=== PATIENT | female | born 1995 | race Caucasian/White ===

== ENCOUNTER 2018-06-05 13:26 | Inpatient (IN) | payer OTHER ==
[~2018-06-05] VITALS: Ht 160 cm; Wt 63.0 kg
[2018-06-05] VITALS (12 sets, daily range): BP systolic 112–129; BP diastolic 67–95
--- NOTE | 2018-06-05 13:38 | ER Report ---
History and Physical Time Seen By MD: 13:38 HPI/ROS CHIEF COMPLAINT: Intentional overdose HISTORY OF PRESENT ILLNESS: This is a 22-year-old female presents to the emergency department with a friend for an intentional overdose. Patient states that about 12 hours prior to arrival, she was depressed, has been depressed for quite some time, decided that she wanted to kill her self, she did take 2. DayQuil, about 15 ibuprofen and a handful of serous that. She denies taking any other medications, no alcohol. No recent fevers or chills. No chest pain. She does have nausea, no vomiting. She states that she's had depression for a number of years, has never been formally diagnosed, she also states that she cuts periodically to relieve tension. REVIEW OF SYSTEMS: Constitutional: No fever, no chills. Eyes: No discharge. ENT: No sore throat. Cardiovascular: No chest pain, no palpitations. Respiratory: No cough, no shortness of breath. Gastrointestinal: As above. Genitourinary: No hematuria. Musculoskeletal: No back pain. Skin: No rashes. Neurological: No headache. Psychological: As above. Allergies: Coded Allergies: No Known Drug Allergies (Unverified , 06/05/18) Home Meds No Active Prescriptions or Reported Meds Past Medical/Surgical History The patient has a past medical and surgical history of headaches, undiagnosed depression, cutting. Reviewed Nurses Notes: Yes Constitutional Vital Sign - Last 24 Hours 06/05/18 06/05/18 06/05/18 06/05/18 13:26 13:36 13:40 13:41 Temp 97.1 Pulse ??? 101 102 Resp 18 B/P (MAP) 132/81 132/81 (98) Pulse Ox 97 96 O2 Delivery Room Air 06/05/18 06/05/18 06/05/18 06/05/18 13:56 14:11 14:26 14:38 Pulse 85 81 79 Resp 8 B/P (MAP) 119/83 (95) Pulse Ox 98 97 95 06/05/18 06/05/18 06/05/18 06/05/18 14:41 14:56 15:00 15:11 Pulse 133 91 83 Resp 12 10 9 B/P (MAP) 129/88 (102) Pulse Ox 94 94 94 06/05/18 06/05/18 06/05/18 15:16 15:30 15:31 Pulse 86 74 Resp 15 8 B/P (MAP) ???/??? (1665) Pulse Ox 94 97 Intake and Output 06/05/18 06/05/18 06/06/18 15:00 23:00 07:00 Intake Total 1000 ml Balance 1000 ml Physical Exam General Appearance: The patient is alert, has no immediate need for airway protection and no signs of toxicity, tearful. Eyes: Pupils equal and round no pallor or injection. ENT, Mouth: Mucous membranes are moist. Respiratory: There are no retractions, lungs are clear to auscultation. Cardiovascular: Regular rate and rhythm, no murmurs, clicks or rubs. Gastrointestinal: Abdomen is soft and non tender, no masses, bowel sounds normal. Neurological: Alert and oriented 4. Moving all extremities. Following all com mands. No focal neuro deficits. Skin: Warm and dry, no rashes. Musculoskeletal: Neck is supple non tender. Extremities are nontender, nonswollen and have full range of motion. DIFFERENTIAL DIAGNOSIS: After history and physical exam differential diagnosis was considered for suicide attempt. Medical Decision Making Data Points Result Diagram: 06/06/18 0436 06/06/18 0436 Laboratory Hematology Test 06/05/18 13:38 06/05/18 14:33 Urine Color Yellow Urine Clarity Slightly-cloudy Urine pH 5.0 pH (4.8-9.5) Urine Specific Hitchins 1.029 Urine Protein 30 mg/dL (NEGATIVE) Urine Glucose (UA) Negative mg/dL (NEGATIVE) Urine Ketones 80 mg/dL (NEGATIVE) Urine Blood Negative (NEGATIVE) Urine Nitrite Negative (NEGATIVE) Urine Bilirubin Negative (NEGATIVE) Urine Urobilinogen Negative mg/dL (0.2-1.9) Urine Leukocyte Esterase Negative (NEGATIVE) Urine RBC None /HPF (0-2/HPF) Urine WBC 3 /HPF (0-5/HPF) Urine Squamous Epithelial Cells Many /LPF (</=FEW) Urine Amorphous Crystals Few /HPF Urine Bacteria Negative /HPF (NONE-FEW) Urine Hyaline Casts Few /LPF (NONE-FEW) Urine Mucus Few /HPF (NONE-FEW) Urine HCG, Qualitative Negative (NEGATIVE) Urine Opiates Screen Negative Urine Barbiturates Screen Positive Ur Tricyclic Antidepressants Screen Negative Urine Phencyclidine Screen Negative Urine Amphetamines Screen Negative Urine Benzodiazepines Screen Negative Urine Cocaine Screen Negative Urine Cannabinoids Screen Positive Magnesium Level 1.8 mg/dl (1.7-2.2) B-Type Natriuretic Peptide < 5 pg/ml (0-100) Thyroid Stimulating Hormone (TSH) 0.31 uIU/ml (0.46-4.68) Serum Alcohol < 10 mg/dl Chemistry Test 06/05/18 13:38 06/05/18 14:33 Urine Color Yellow Urine Clarity Slightly-cloudy Urine pH 5.0 pH (4.8-9.5) Urine Specific Hitchins 1.029 Urine Protein 30 mg/dL (NEGATIVE) Urine Glucose (UA) Negative mg/dL (NEGATIVE) Urine Ketones 80 mg/dL (NEGATIVE) Urine Blood Negative (NEGATIVE) Urine Nitrite Negative (NEGATIVE) Urine Bilirubin Negative (NEGATIVE) Urine Urobilinogen Negative mg/dL (0.2-1.9) Urine Leukocyte Esterase Negative (NEGATIVE) Urine RBC None /HPF (0-2/HPF) Urine WBC 3 /HPF (0-5/HPF) Urine Squamous Epithelial Cells Many /LPF (</=FEW) Urine Amorphous Crystals Few /HPF Urine Bacteria Negative /HPF (NONE-FEW) Urine Hyaline Casts Few /LPF (NONE-FEW) Urine Mucus Few /HPF (NONE-FEW) Urine HCG, Qualitative Negative (NEGATIVE) Urine Opiates Screen Negative Urine Barbiturates Screen Positive Ur Tricyclic Antidepressants Screen Negative Urine Phencyclidine Screen Negative Urine Amphetamines Screen Negative Urine Benzodiazepines Screen Negative Urine Cocaine Screen Negative Urine Cannabinoids Screen Positive Magnesium Level 1.8 mg/dl (1.7-2.2) B-Type Natriuretic Peptide < 5 pg/ml (0-100) Thyroid Stimulating Hormone (TSH) 0.31 uIU/ml (0.46-4.68) Serum Alcohol < 10 mg/dl Toxicology Test 06/05/18 13:38 06/05/18 14:33 Urine Opiates Screen Negative Urine Barbiturates Screen Positive Ur Tricyclic Antidepressants Screen Negative Urine Phencyclidine Screen Negative Urine Amphetamines Screen Negative Urine Benzodiazepines Screen Negative Urine Cocaine Screen Negative Urine Cannabinoids Screen Positive Serum Alcohol < 10 mg/dl Urinalysis Test 06/05/18 13:38 Urine Color Yellow Urine Clarity Slightly-cloudy Urine pH 5.0 pH (4.8-9.5) Urine Specific Hitchins 1.029 Urine Protein 30 mg/dL (NEGATIVE) Urine Glucose (UA) Negative mg/dL (NEGATIVE) Urine Ketones 80 mg/dL (NEGATIVE) Urine Blood Negative (NEGATIVE) Urine Nitrite Negative (NEGATIVE) Urine Bilirubin Negative (NEGATIVE) Urine Urobilinogen Negative mg/dL (0.2-1.9) Urine Leukocyte Esterase Negative (NEGATIVE) Urine RBC None /HPF (0-2/HPF) Urine WBC 3 /HPF (0-5/HPF) Urine Squamous Epithelial Cells Many /LPF (</=FEW) Urine Amorphous Crystals Few /HPF Urine Bacteria Negative /HPF (NONE-FEW) Urine Hyaline Casts Few /LPF (NONE-FEW) Urine Mucus Few /HPF (NONE-FEW) Urine HCG, Qualitative Negative (NEGATIVE) EKG/Imaging EKG Interpretation 12 lead EKG: Time of EKG 1427. Rhythm: Normal sinus rhythm, ventricular rate 85 bpm. Norton: normal QRS: normal ST segments: No ST depression or elevation identified. ED Course/Re-evaluation Clinical Indication for ER IV: Hydration, IV Access ED Course Patient was admitted to room. History and physical were pain. Differential diagnoses were considered. An IV was started. A CBC, CMP, psych panel and 1 L normal saline bolus was given. 4 mg IV Zofran. CBC showing hemoglobin and hematocrit 17.2 and 49.3, mild left shift, CO2 21, creatinine 1.10, negative BNP positive for habitus and barbiturates, contaminated UA, initially salicylates unremarkable, acetaminophen level of 40, one hour later acetaminophen level 35.Patient was remorseful, she did sign into the care of health and ICU on a voluntary basis. We did contact poison control, was recommended that we monitor with serial labs, specifically the Tylenol and aspirin levels. EKG showing no rmal sinus rhythm. The patient did well while in the emergency department, she did sign into behavioral health and the ICU voluntarily for suicide attempt. Patient was also evaluated by a psychotherapist prior to admission. I did speak with Dr. Nick Brown as noted below, patient was admitted to ICU. A patient was also given activated charcoal while in the emergency department. 06/05/2018 3:22:51 pm I did speak with Dr. Astrid Brown, the hospitalist furnishings conservator, he will come and evaluate the patient for possible admission to the ICU. The patient was also evaluated by the behavioral health tech, she did sign in voluntarily. 06/05/2018 4:14:[address] Hernandez was able to evaluate the patient, she will be admitted to the ICU for observation and likely transfer to the behavioral health unit. Decision to Disposition Date: Jun 05, 2018 Decision to Disposition Time: 16:14 Depart Departure Latest Vital Signs Vital Signs Date Time Temp Pulse Resp B/P (MAP) Pulse Ox O2 Delivery O2 Flow Rate FiO2 06/05/18 15:31 74 8 97 06/05/18 15:30 ???/??? (1665) 06/05/18 13:36 97.1 Room Air Impression: Primary Impression: Suicide attempt Condition: Improved Disposition: Admitted from ER New Scripts No Active Prescriptions or Reported Meds TRINY THOMAS PARTS IDENTIFICATION TECHNICIAN-BC Jun 05, 2018 13:38
[2018-06-05] MEDS ORDERED: NS(*) 0.9% 1000 ML BAG 1,000 ML IV ONE (13:58)
[2018-06-05] MEDS ORDERED: ONDANSETRON 4 MG/2 ML VIAL IVP ONE (14:00)
[2018-06-05] MEDS ORDERED: ACTIVATED CHAR/SORB 25GM/120ML PO ONE (14:20)
[2018-06-05 14:38] LABS: PLATELET COUNT, AUTOMATED 308 K/uL (150-450)
--- NOTE | 2018-06-05 15:51 | EKG ---
FACILITY: [facility] PATIENT NAME: AYAKA WALKER : [id number] MR: [id number] V: [id number] EXAM DATE: ORDERING PHYSICIAN: TRINY THOMAS TECHNOLOGIST: TANYA Owens Reason : Blood Pressure : / mmHG Vent. Rate : 085 BPM Atrial Rate : 085 BPM P-R Int : 122 ms QRS Dur : 074 ms QT Int : 362 ms P-R-T Axes : 063 079 042 degrees QTc Int : 430 ms Normal sinus rhythm with sinus arrhythmia Normal ECG No previous ECGs available Confirmed by OG WHALEN ([id number]) on 06/05/2018 5:15:07 PM Referred By: Confirmed By:OG WHALEN
[2018-06-05] MEDS ORDERED: ONDANSETRON 4 MG/2 ML VIAL ONE (17:02)
[2018-06-05] MEDS ORDERED: PROMETHAZINE 25 MG/ML 1 ML AMP IVP PRN (17:10)
--- NOTE | 2018-06-05 17:42 | History & Physical ---
History of Present Illness History of Present Illness 22yo female with h/o depression and migraines who was brought to the ER after an ingestion of DayQuil, Advil, and Fioricet. She reports for the last couple of weeks she has been feeling more down and more stressed. There was no acute stressor today. At about 11am she took 2 capfuls of DayQuil, 10-15 of 200mg ibuprofen and 10 Fioricet. She told a friend about it and they brought her to the ER. She reports that when she got to the ER she felt nauseated, dizzy and her fingertips felt numb. She is feeling a bit better now. She denies suicidal ideation currently. She has never attempted suicide before, but has a h/o cutting herself. She denies any other ingestions. She rarely drinks alcohol, doesn't smoke cigarettes and denies any illicit drug use. In the ER she received Charcoal, Zofran and a liter of NS. History Problems: (1) Depression (2) Migraine Allergies: Coded Allergies: No Known Drug Allergies (Unverified , 06/05/18) Other Social/Family Hx See HPI. Student at [employer]. She has lived in [place] for 7 years. She lived in [place] in the [place], prior. Hx Alcohol Use: Yes (ONCE A MONTH ) Alcohol Withdrawl Symptoms: Hallucinations Review of Systems All Systems Reviewed/Normal: Yes, Except as Noted Exam Vital Signs Vital Signs Date Time Temp Pulse Resp B/P (MAP) Pulse Ox O2 Delivery O2 Flow Rate FiO2 06/05/18 15:11 83 9 94 06/05/18 15:00 129/88 (102) 06/05/18 13:36 97.1 Room Air General Appearance: Alert, Awake, No Acute Distress (Tearful) Neuro: No Gross deficits Eyes: PERRLA ENT: Moist Mucous Membranes Cardiovascular: Regular Rate and Rhythm Respiratory: Clear to Auscultation GI: Abd Soft and Non-Tender Extremities: No Edema Integumentary: No Jaundice, No Cyanosis Medical Decision Making Data Points Result Diagram: 06/05/18 1433 06/05/18 1433 Item Value Date Time Hemoglobin 17.2 g/dL H 06/05/18 1433 Neutrophils (%) (Auto) 75.8 % H 06/05/18 1433 B-Type Natriuretic Peptide < 5 pg/ml 06/05/18 1433 Total Bilirubin 1.3 mg/dl 06/05/18 1433 Aspartate Amino Transf (AST/SGOT) 27 U/L 06/05/18 1433 Alanine Aminotransferase (ALT/SGPT) 26 U/L 06/05/18 1433 Alkaline Phosphatase 83 U/L 06/05/18 1433 Urine Ketones 80 mg/dL H 06/05/18 1338 Urine Squamous Epithelial Cells Many /LPF H 06/05/18 1338 Urine Amorphous Crystals Few /HPF 06/05/18 1338 Urine Bacteria Negative /HPF 06/05/18 1338 Urine WBC 3 /HPF 06/05/18 1338 Urine RBC None /HPF 06/05/18 1338 Urine HCG, Qualitative Negative 06/05/18 1338 Serum Alcohol < 10 mg/dl 06/05/18 1433 Acetaminophen Level 40 ug/ml 06/05/18 1433 Acetaminophen Level 35 ug/ml 06/05/18 1529 Salicylates Level < 10 mg/L 06/05/18 1529 Salicylates Level < 10 mg/L 06/05/18 1433 Urine Barbiturates Screen Positive 06/05/18 1338 Urine Cannabinoids Screen Positive 06/05/18 1338 EKG / Imaging EKG Interpretation Vent. Rate : 085 BPM Atrial Rate : 085 BPM P-R Int : 122 ms QRS Dur : 074 ms QT Int : 362 ms P-R-T Axes : 063 079 042 degrees QTc Int : 430 ms Normal sinus rhythm with sinus arrhythmia Normal ECG No previous ECGs available Confirmed by OG WHALEN ([id number]) on 06/05/2018 5:15:07 PM Assessment and Plan Problems: (1) Overdose Status: Acute Assessment & Plan: She presented a couple about 2 hours after ingestion 2 capfuls of DayQuil, 10-15 of 200mg ibuprofen and 10 Fioricet. She thinks she has a h/o depression and has been more depressed and stressed over the last 2 weeks. There was no inciting event today. She received Charcoal in the ER. She is feeling less nauseated and the distal fingertip numbness is improving. B P/P are stable. Her mental status appears to be near baseline. Will recheck ECG, APAP and salicylates this evening. She will be monitored in the ICU. Venous Thromboembolism Antithrombotics Is Pt On Any Antithrombotics?: No Exam Sepsis Risk: No Definite Risk OG WHALEN MD Jun 05, 2018 17:42
--- NOTE | 2018-06-05 20:40 | EKG ---
FACILITY: [facility] PATIENT NAME: AYAKA WALKER : [id number] MR: [id number] V: [id number] EXAM DATE: ORDERING PHYSICIAN: OG WHALEN TECHNOLOGIST: JOSEPH Test Reason : CHEM INJESTION Blood Pressure : / mmHG Vent. Rate : 088 BPM Atrial Rate : 088 BPM P-R Int : 124 ms QRS Dur : 082 ms QT Int : 342 ms P-R-T Axes : 084 081 055 degrees QTc Int : 413 ms Normal sinus rhythm with sinus arrhythmia Nonspecific T wave abnormality Abnormal ECG When compared with ECG of 05-JUN-2018 14:27, No significant change was found Confirmed by OG WHALEN ([id number]) on 06/05/2018 9:24:53 PM Referred By: Confirmed By:OG WHALEN
[2018-06-06] VITALS (24 sets, daily range): BP systolic 92–138; BP diastolic 48–93; Ht 160 cm; Wt 63.0 kg
[2018-06-06 04:59] LABS: PLATELET COUNT, AUTOMATED 267 K/uL (150-450)
--- NOTE | 2018-06-06 10:05 | Hospitalist Depart ---
Discharge Summary Reason for Hosp/Final Diag: (1) Overdose Status: Acute Hospital Course & Plan: She was observed in the ICU overnight after an attempted overdose with 2 Dayquil and 15 ibuprofen. She had no adverse events. She will transfer to [facility] for ongoing care. Departure Latest Vital Signs Vital Signs 06/06/18 09:30 Temp 98.0 Pulse 66 Resp 13 B/P (MAP) 114/66 (82) Pulse Ox 92 O2 Delivery Room Air Weight (Pounds): 139 Result Diagram: 06/06/186 06/06/18 043 Condition: Improved Discharge: [facility] Discharge Instructions Diet: Regular Activity: As Tolerated Venous Thromboembolism Antithrombotics Is Pt On Any Antithrombotics?: No DAVID LINDQUIST DO Jun 06, 2018 10:05
[2018-06-07] MEDS ORDERED: INFLUENZA VIRUS VAC 0.5ML SYR IM ONLY ONE (09:00)
== END 2018-06-06 13:45 | DRG 918 ==
LOC: ER 13:46 → ICU 15:41
PROVIDERS: ADMIT Internal Medicine; ATTEND Internal Medicine
DX: T39.312A Poisoning by propionic acid derivatives, intentional self-harm, initial encounter (principal); T39.1X2A Poisoning by 4-Aminophenol derivatives, intentional self-harm, initial encounter; T50.992A Poisoning by other drugs, medicaments and biological substances, intentional self-harm, initial encounter; T14.91XA Suicide attempt, initial encounter; F32.9 Major depressive disorder, single episode, unspecified; Z91.5 Personal history of self-harm
CPT/HCPCS: 36415; 80305; 80320; 80329; 81001; 81025; 82040; 82247; 82310; 82374; 82435; 82565; 82947; 83735; 83880; 84075; 84132; 84155; 84295; 84443; 84450; 84460; 84520; 85025; 93005; 96374; 99284; J2405; J7030

== ENCOUNTER 2018-06-06 13:45 | Inpatient (IN) | payer OTHER ==
[~2018-06-06] VITALS: Ht 157.5 cm; Wt 61.7 kg
[2018-06-06 08:35] VITALS: Ht 157.5 cm; Wt 61.7 kg
[2018-06-06] MEDS ORDERED: ACETAMINOPHEN 325 MG TAB PO PRN (14:35)
[2018-06-06] MEDS ORDERED: MAG HYD/AL HYD/SIMETH 30ML UDC PO PRN (14:35)
[2018-06-06 16:51] VITALS: BP 107/71
[2018-06-07] MEDS ORDERED: hydrOXYzine PAMOATE 25 MG CAP PO PRN (00:10)
[2018-06-07 05:31] VITALS: BP 118/85
[2018-06-07] MEDS: MULTIVITAMINS TAB PO SCH (08:14)
[2018-06-07 09:07] VITALS: BP 107/68
[2018-06-07] MEDS: FLUoxetine HCL 20 MG CAP PO SCH (10:39)
--- NOTE | 2018-06-07 15:25 | HISTORY AND PHYSICAL ---
DATE OF ADMISSION: June 06, 2018 ATTENDING PHYSICIAN Lilly Colon MD The patient was interviewed on 06/07/18 for this history and physical. CHIEF COMPLAINT "I tried to commit suicide two days ago." HISTORY OF PRESENT ILLNESS This is the first ever psychiatric admission for this 22-year-old female who has a history of depression and who took an overdose in a suicide attempt two days ago. The patient says she has been depressed for seven or eight years and has received no treatment for this. Over the past two weeks, her depression has been more intense with the onset of suicidal ideation. On the day of admission, she took medications with her and drove her car down the street from her parents' house and then took an overdose in her car including drinking DayQuil, taking some Advil and some Fioricet. About 1-1/2 hours after she took the overdose, she then called her friend, Jennifer, who came and got her and drove her to the emergency room. The patient did sign in voluntarily to the hospital and to [facility], but she was first admitted to the ICU where she was monitored overnight. Please see the discharge summary from the Medical Service. She was stable for transfer to [facility] on 06/06/18. 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 When asked about mood swings, she describes sometimes feeling normal, and then her mood dipping down into depression, but there are never any episodes of euphoria nor daniel. PAST PSYCHIATRIC HISTORY The patient has never been in any kind of psychiatric treatment and has never had a suicide attempt before. FAMILY HISTORY Negative. PAST MEDICAL HISTORY She is in good health. MEDICATIONS None. ALLERGIES None. SOCIAL HISTORY The patient was born in [place] to parents who are still . She has one full sister, two half sisters, and one half brother. The family moved around a lot, including [place], [place], [place], [place], and finally [place]. She is a high school graduate and is now taking health science courses at [employer]. 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 She lives at home with her parents, with whom she describes a good relationship. LEGAL HISTORY Negative. VICTIM ISSUES She has no history of physical or sexual abuse. SUBSTANCE ABUSE HISTORY She drinks about two glasses of wine per month and other than that uses no other drugs. PHYSICAL EXAMINATION Please see the emergency room physician's report as well as her ICU chart. VITAL SIGNS: Temperature 98.8, pulse 78, respiratory rate 15, blood pressure 107/71, pulse ox is 95% on room air. LABORATORY STUDIES These were done the morning of admission while the patient was still in ICU. At that time, her CBC was within normal limits except for hemoglobin 16.4 and hematocrit 47.8 which are both elevated. Her chemistry panel on 06/06/18 was within normal limits. Her TSH is low at 0.31. Her tox screen on admission to the Emergency Room the day before was positive for barbiturates and positive for cannabinoids. At that time, her acetaminophen level was 13. It was followed serially, and she never did require any Mucomyst. Serum alcohol was nil. Urinalysis on admission showed high ketones at 80 and was otherwise within normal limits. Her urine hCG was negative. MENTAL STATUS EXAMINATION The patient was well groomed and cooperative, dressed in hospital scrubs. Her speech was low in volume and somewhat delayed in her responses. Her mood and affect were significantly depressed with several episodes of tearfulness. Thought process was logical and goal directed. Thought content was negative for any current suicidal ideation, although she does still feel passive wishes. She denies homicidal ideation. There are no auditory or visual hallucinations. There are no delusions. She is alert and fully oriented to person, place, time, and situation. Memory is intact for immediate, recent, and remote recall. Intelligence is average based on interview. Insight and judgment are fair. IMPRESSION 1. Major depressive disorder, recurrent, severe. 2. Status post suicide attempt by overdose. PLAN The patient is admitted to [facility] and is being maintained on suicide precautions. She will attend individual and group therapies. We have discussed medications for depression, and she has agreed to a trial of Prozac 20 mg each day. In addition, we will add trazodone 50 mg at bedtime to help with sleep. Her mother will join us for a team meeting tomorrow, and we will arrange outpatient therapy and medication management for her for after she goes home. Her estimated length of stay will be three to five days. [facility]
[2018-06-07] MEDS: traZODone HCL 50 MG TAB PO SCH (20:46)
[2018-06-07 21:02] VITALS: BP 112/72
[2018-06-08 06:29] VITALS: BP 106/72
[2018-06-08 08:04] VITALS: BP 109/66
[2018-06-08] MEDS: FLUoxetine HCL 20 MG CAP PO SCH (08:19)
[2018-06-08] MEDS: MULTIVITAMINS TAB PO SCH (08:19)
--- NOTE | 2018-06-08 14:53 | BHS Progress Note ---
S - Subjective Progress Notes Subjective Pt seen in treatment team-- her mother was unable to attend (but parents did visit last night). Pt says she is feeling better, and denies SI. She is tolerating medications well, denies SE's, slept better last night. We discussed her drug screen positive for cannabis, and will do more psychoeducation today regarding link between cannabis abuse, depression, suicidality. She would like to be discharged today but I told her we need at least one more day to monitor her safety-- given the serious nature of overdose, and given that she has never been on antidepressant before, want to make sure prozac and trazodone are well tolerated and not inducing suicidal thinking. Today she will work on distress tolerance, mindfulness, and then start wellness and recovery plan for tentative dc tomorrow. Suicidal Ideation: None Homicidal Ideation: None S - Objective Physical Exam Vital Signs Vital Signs 06/08/18 08:04 Temp 98.8 Pulse 91 Resp 16 B/P (MAP) 109/66 (80) Pulse Ox 94 O2 Delivery Room Air Muscle Strength and Tone: WNL Gait and Station: Steady BHS Medications Reviewed: Side Effects, Benefits of Medication, Risks Allergies Reviewed: Yes Mental Status Exam General Appearance: Casual, Well Groomed, Cooperative, Good Interaction, Tearful, Psychomotor Retardation Speech: Clear, Spontaneous, Delayed Mood: Dysthmic/Depressed Affect: Calm, Sad, Tearful Thought Process: Organized, Logical, Goal Directed Thought Content: No Suicidal Ideation, No Homicidal Ideation, No Delusions, No Auditory Halllucinations, No Visual Hallucinations, No Thought Broadcasting, No Ideas of Reference, No Obsessions, No Compulsions, No Other Sensorium: Clear Cognition: Alert & Oriented-Person, Alert & Oriented-Place, Alert & Oriented- Time, [id number]-[id number] Memory: Immediate, Recent, Remote Intelligence: Average Insight Judgment: Fair [facility] Assessment and Plan [id number] Encounter Date: Jun 08, 2018 [id number] Encounter Time: 10:30 [facility] Plan: Necessary Precautions, Individual/Group Therapy, Admin/Titrate Meds, Educate Patient Tobacco Medications: Not Appropriate Condition Multpiple Antipsychotics Used: No Problems: (1) Depression, major, single episode, severe (2) Suicide attempt Status: Acute ANAID REYES MD Jun 08, 2018 14:53
[2018-06-08] MEDS: traZODone HCL 50 MG TAB PO SCH (20:25)
[2018-06-08 20:56] VITALS: BP 100/72
[2018-06-09 06:12] VITALS: BP 104/76
[2018-06-09] MEDS: FLUoxetine HCL 20 MG CAP PO SCH (08:23)
[2018-06-09] MEDS: MULTIVITAMINS TAB PO SCH (08:23)
[2018-06-09] MEDS ORDERED: TRAZ50TA34 PO (10:37)
[2018-06-09] MEDS ORDERED: FLUO-202 PO (10:38)
[2018-06-09] MEDS ORDERED: MINO100C27 PO (10:39)
[2018-06-09] MEDS ORDERED: MINOCYCLINE HCL 100 MG CAP PO SCH (11:00)
--- NOTE | 2018-06-09 14:16 | BHS Discharge Summary ---
[facility] Discharge Summary Vpaz-bb-Cezp Encounter Date: Jun 09, 2018 Aiot-tp-Dkhl Encounter Time: 10:30 Reason-Hosp/Final Diag (DSM-V): (1) Depression, major, single episode, severe Hospital Course & Plan: CHIEF COMPLAINT "I tried to commit suicide two days ago." HISTORY OF PRESENT ILLNESS This is the first ever psychiatric admission for this 22-year-old female who has a history of depression and who took an overdose in a suicide attempt two days ago. The patient says she has been depressed for seven or eight years and has received no treatment for this. Over the past two weeks, her depression has been more intense with the onset of suicidal ideation. On the day of admission, she took medications with her and drove her car down the street from her parents' house and then took an overdose in her car including drinking DayQuil, taking some Advil and some Fioricet. About 1-1/2 hours after she took the overdose, she then called her friend, Jennifer, who came and got her and drove her to the emergency room. The patient did sign in voluntarily to the hospital and to [facility], but she was first admitted to the ICU where she was monitored overnight. Please see the discharge summary from the Medical Service. She was stable for transfer to Behavioral Health on 06/06/18. 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 When asked about mood swings, she describes sometimes feeling normal, and then her mood dipping down into depression, but there are never any episodes of euphoria nor daniel. PAST PSYCHIATRIC HISTORY The patient has never been in any kind of psychiatric treatment and has never had a suicide attempt before. HOSPITAL COURSE Pt was admitted to [facility] and maintained on suicide precautions. She was cooperative and an active participant in her treatment, attending all groups and [place] activities. She still had vague suicidal ideation the first day, but this resolved for the rest of hospital stay. She participated in psychoeducation about depression, also about the negative effects of cannabis and alcohol. We held a family meeting by phone with pt's mother who was supportive, and who verified that there are no firearms in the home-- we recommended that medications in the home be locked up at least for the first month while pt begins to benefit from meds and gets established in therapy. We discussed pro's and cons of medication, and she chose to follow our recommendati on and start prozac 20 mg q am and trazodone 50 mg q hs. These were well tolerated. We also added minocycline 100 mg q am for acne. We discussed with her her mildly abnormal thyroid function tests (see labs below) and she will follow up with her LMD. She will also follow up with outpatient therapy at [facility] where she will have weekly therapy as well as medication management. (2) Suicide attempt Status: Acute (3) Abnormal thyroid function test Physical Exam Latest Vital Signs Vital Signs 06/09/18 06:12 Temp 98.3 Pulse 61 Resp 15 B/P (MAP) 104/76 (85) Pulse Ox 96 O2 Delivery Room Air Mental Status Exam General Appearance: Casual, Well Groomed, Good Eye Contact, Cooperative, Polite, Good Interaction Speech: Clear, Spontaneous, Normal Rate, Normal Rhythm, Normal Volume, Normal Tone Mood: Euthymic Affect: Full and Appropriate, Calm Thought Process: Organized, Logical, Goal Directed Thought Content: No Suicidal Ideation, No Homicidal Ideation, No Delusions, No Auditory Halllucinations, No Visual Hallucinations, No Thought Broadcasting, No Ideas of Reference, No Obsessions, No Compulsions, No Other Sensorium: Clear Cognition: Alert & Oriented-Person, Alert & Oriented-Place, Alert & Oriented- Time, Deyjh-Thrswnpt-Gdsnzvraf Memory: Immediate, Recent, Remote Intelligence: Average Insight Judgment: Good Departure Item Value Date Time White Blood Count 6.2 k/uL 06/06/18 0436 Red Blood Count 4.99 M/uL 06/06/186 Hemoglobin 16.4 g/dL H 06/06/18435 Hematocrit 47.8 % H 06/06/18435 Mean Corpuscular Volume 95.8 fL 06/06/18435 Mean Corpuscular Hemoglobin 33.0 pg 06/06/18435 Mean Corpuscular Hemoglobin Concent 34.4 g/dL 06/06/18435 Red Cell Distribution Width 12.2 % 06/06/18435 Platelet Count 267 K/uL 06/06/18435 Mean Platelet Volume 8.0 fL 06/06/18435 Neutrophils (%) (Auto) 56.1 % 06/06/18 043 Lymphocytes (%) (Auto) 27.8 % 06/06/18435 Monocytes (%) (Auto) 14.5 % H 06/06/18 043 Eosinophils (%) (Auto) 0.9 % 06/06/18 043 Basophils (%) (Auto) 0.7 % 06/06/18435 Nucleated RBC Relative Count (auto) 0.1 /100WBC 06/06/18435 Neutrophils # (Auto) 3.5 K/uL 06/06/18435 Lymphocytes # (Auto) 1.7 K/uL 06/06/18435 Monocytes # (Auto) 0.9 K/uL 06/06/18435 Eosinophils # (Auto) 0.1 K/uL 06/06/18435 Basophils # (Auto) 0.0 K/uL 06/06/18435 Nucleated RBC Absolute Count (auto) 0.00 K/uL 06/06/18435 Sodium Level 142 mmol/L 06/06/18435 Potassium Level 3.8 mmol/L 06/06/18435 Chloride Level 107 mmol/L 06/06/18435 Carbon Dioxide Level 23 mmol/L 06/06/18435 Blood Urea Nitrogen 9 mg/dl 06/06/186 Creatinine 1.00 mg/dl 06/06/18435 Glomerular Filtration Rate Calc > 60.0 06/06/18435 Random Glucose 76 mg/dl 06/06/186 Calcium Level 9.4 mg/dl 06/06/186 Magnesium Level 1.8 mg/dl 06/05/18 1433 Total Bilirubin 1.0 mg/dl 06/06/186 Aspartate Amino Transf (AST/SGOT) 24 U/L 06/06/18 0436 Alanine Aminotransferase (ALT/SGPT) 30 U/L 06/06/18 043 Alkaline Phosphatase 59 U/L 06/06/18 0436 B-Type Natriuretic Peptide < 5 pg/ml 06/05/18 1433 Total Protein 7.0 g/dl 06/06/18 0436 Albumin 4.4 g/dl 06/06/18 0436 Thyroid Stimulating Hormone (TSH) 0.31 uIU/ml L 06/05/18 1433 Free Thyroxine 2.65 ng/dl H 06/07/18 0000 Free Triiodothyronine 2.7 pg/mL 06/07/18 0000 Urine Color Yellow 06/05/18 1338 Urine Clarity Slightly-cloudy 06/05/18 1338 Urine pH 5.0 pH 06/05/18 1338 Urine Specific [place] 1.029 06/05/18 1338 Urine Protein 30 mg/dL 06/05/18 1338 Urine Glucose (UA) Negative mg/dL 06/05/18 1338 Urine Ketones 80 mg/dL H 06/05/18 1338 Urine Blood Negative 06/05/18 1338 Urine Nitrite Negative 06/05/18 1338 Urine Bilirubin Negative 06/05/18 1338 Urine Urobilinogen Negative mg/dL 06/05/18 1338 Urine Leukocyte Esterase Negative 06/05/18 1338 Urine RBC None /HPF 06/05/18 1338 Urine WBC 3 /HPF 06/05/18 1338 Urine Squamous Epithelial Cells Many /LPF H 06/05/18 1338 Urine Amorphous Crystals Few /HPF 06/05/18 1338 Urine Bacteria Negative /HPF 06/05/18 1338 Urine Hyaline Casts Few /LPF 06/05/18 1338 Urine Mucus Few /HPF 06/05/18 1338 Urine HCG, Qualitative Negative 06/05/18 1338 Salicylates Level < 10 mg/L 06/05/181999 Salicylate Last Dose Date ? 06/05/181999 Urine Opiates Screen Negative 06/05/18 1338 Acetaminophen Level 13 ug/ml 06/05/181999 Urine Barbiturates Screen Positive 06/05/18 1338 Ur Tricyclic Antidepressants Screen Negative 06/05/18 1338 Urine Phencyclidine Screen Negative 06/05/18 1338 Urine Amphetamines Screen Negative 06/05/18 1338 Urine Benzodiazepines Screen Negative 06/05/18 1338 Urine Cocaine Screen Negative 06/05/18 1338 Urine Cannabinoids Screen Positive 06/05/18 1338 Serum Alcohol < 10 mg/dl 06/05/18 1433 Condition: Improved Discharge to: Home Discharge Instructions Home Meds Reported Medications Minocycline Hcl (MINOCYCLINE HCL) 100 Mg Capsule, 100 MG PO QAM, CAPSULE 06/09/18 Fluoxetine Hcl (PROZAC) 20 Mg Capsule, 20 MG PO QAM, CAPSULE 06/09/18 Trazodone Hcl (TRAZODONE HCL) 50 Mg Tablet, 50 MG PO QHS 06/09/18 Multpiple Antipsychotics Used: No Diet: Regular Activity: As Tolerated Special Instructions: Take medications as prescribed. Follow up with outpatient provider for medication management. Follow up with outpatient therapy. Call Crisis Line should symptoms return. ANAID REYES MD Jun 09, 2018 14:16
[2018-06-09 14:18] VITALS: BP 117/76
== END 2018-06-09 16:25 | disposition home or self-care (01) | DRG 885 ==
LOC: BHS 13:45
PROVIDERS: ADMIT Psychiatry & Neurology Psychiatry; ATTEND Psychiatry & Neurology Psychiatry
DX: F32.2 Major depressive disorder, single episode, severe without psychotic features (principal); R45.851 Suicidal ideations; T39.312A Poisoning by propionic acid derivatives, intentional self-harm, initial encounter; T39.1X2A Poisoning by 4-Aminophenol derivatives, intentional self-harm, initial encounter; Y92.810 Car as the place of occurrence of the external cause
CPT/HCPCS: 84439; 84481